=== PATIENT | female | born 2000 | race Caucasian/White ===

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

== ENCOUNTER 2019-10-16 17:39 | Emergency (ER) | payer OTHER ==
[~2019-10-16] VITALS: Ht 170.2 cm; Wt 124.7 kg
[~2019-10-16 17:39] MED LIST: PREDNISONE 20 M20 MG PO
[2019-10-16] MEDS ORDERED: AMOXICILLIN 50500 MG PO (19:59)
[2019-10-16 20:22] VITALS: BP 153/97
== END 2019-10-16 20:24 | disposition home or self-care (01) ==
LOC: M.ERS 17:39
DX: J02.9 Acute pharyngitis, unspecified (principal); E11.9 Type 2 diabetes mellitus without complications